=== PATIENT | male | born 1945 | race Caucasian/White ===

== ENCOUNTER 2018-01-27 14:14 | Emergency (ER) | payer MEDICARE ==
[~2018-01-27] VITALS: Ht 170.2 cm; Wt 93.4 kg
[2018-01-27] MEDS ORDERED: SIMV10 PO (14:23)
[2018-01-27] MEDS ORDERED: Omeprazole20 M1 PO (14:23)
[2018-01-27] MEDS ORDERED: METF500C PO (14:24)
[2018-01-27] MEDS ORDERED: LOSA50 PO (14:24)
[2018-01-27] MEDS ORDERED: FENO160 PO (14:24)
[2018-01-27] MEDS ORDERED: GLIP5 PO (14:25)
[2018-01-27] MEDS ORDERED: Desyrel150 MG PO (14:25)
[2018-01-27] MEDS ORDERED: TRAM50 PO (14:25)
[2018-01-27] MEDS ORDERED: HYDCHL12.5 PO (14:25)
[2018-01-27] MEDS ORDERED: ESBRIET267 MG PO (14:26)
[2018-01-27] MEDS ORDERED: CITA20 PO (14:26)
[2018-01-27] MEDS ORDERED: Norco 5-325 Ta1 EACH PO (15:51)
== END 2018-01-27 16:30 | disposition home or self-care (01) ==
LOC: ER 14:14
DX: M16.11 Unilateral primary osteoarthritis, right hip (principal); M54.41 Lumbago with sciatica, right side; K21.9 Gastro-esophageal reflux disease without esophagitis; I10 Essential (primary) hypertension; E11.9 Type 2 diabetes mellitus without complications; Z79.899 Other long term (current) drug therapy; Z79.84 Long term (current) use of oral hypoglycemic drugs
CPT/HCPCS: 72100; 73502; 96374; 96375; 96376; 99284-25; J1885; J3010